=== PATIENT | male | born 1940 | race Caucasian/White ===

== ENCOUNTER 2016-06-06 08:43 | Outpatient (CLI) | payer MEDICARE | END 2016-06-06 08:44 | disposition home or self-care (01) | DX: R73.01 Impaired fasting glucose (principal); I65.21 Occlusion and stenosis of right carotid artery; E78.5 Hyperlipidemia, unspecified; E55.9 Vitamin D deficiency, unspecified ==

== ENCOUNTER 2016-07-31 07:42 | Outpatient (CLI) | payer MEDICARE ==
[2016-07-31 12:03] LABS: BASOPHILS % (AUTO) 0.6 %; EOSINOPHILS # (AUTO) 0.2 10^3/uL (0.0-0.7); EOSINOPHILS % (AUTO) 3.1 %; HCT - HEMATOCRIT 41.2 % (42.0-52.0); HGB - HEMOGLOBIN 14.5 g/dL (14.0-18.0); LYMPHOCYTES # (AUTO) 1.7 10^3/uL (1.5-3.5); LYMPHOCYTES % (AUTO) 31.4 %; MEAN CORPUSCULAR HEMOGLOBIN 32.6 pg (27.0-31.0); MEAN CORPUSCULAR HGB CONC 35.1 g/dL (32.0-36.0); MEAN CORPUSCULAR VOLUME 92.8 fL (80.0-94.0); MONOCYTES # (AUTO) 0.6 10^3/uL (0.0-1.0); MONOCYTES % (AUTO) 10.8 %; NEUTROPHILS # (AUTO) 2.9 10^3/uL (1.5-6.6); NEUTROPHILS % (AUTO) 54.1 %; RED BLOOD COUNT 4.44 10^6/uL (4.70-6.10); RED CELL DISTRIBUTION WIDTH 12.3 % (12.0-15.0); UNCORRECTED WHITE BLOOD COUNT 5.4 x10^3/uL; WHITE BLOOD COUNT 5.4 x10^3/uL (4.8-10.8)
[2016-07-31 12:49] LABS: FERRITIN 152.5 ng/mL (23.9-336.2)
[2016-07-31 13:02] LABS: IRON 100 ug/dL (45-182); THYROID STIMULATING HORMONE 1.51 uIU/mL (0.34-5.60)
[2016-07-31 13:03] LABS: TOTAL IRON BINDING CAPACITY 304 ug/dL (250-450); TRANSFERRIN 217 mg/dL (180-329)
== END 2016-07-31 07:43 | disposition home or self-care (01) ==
LOC: LAB.F 07:42
PROVIDERS: ATTEND Physician Assistant Medical
DX: E83.119 Hemochromatosis, unspecified (principal); R61 Generalized hyperhidrosis
CPT/HCPCS: 36415; 82040; 82728; 83540; 84270; 84403; 84443; 84466; 85025

== ENCOUNTER 2016-12-30 13:14 | Outpatient (CLI) | payer MEDICARE | END 2016-12-30 13:15 | disposition home or self-care (01) | LOC: LAB.F 13:14 | PROVIDERS: ATTEND Physician Assistant Medical | DX: E55.9 Vitamin D deficiency, unspecified (principal); E78.5 Hyperlipidemia, unspecified ==

== ENCOUNTER 2017-07-28 09:55 | Outpatient (CLI) | payer MEDICARE ==
[2017-07-28 18:08] LABS: CHOL/HDL RATIO 6.1 (<5.0); CHOLESTEROL 220 mg/dL; HDL CHOLESTEROL 36 mg/dL; LDL CHOLESTEROL,CALCULATED 143 mg/dL; VLDL CHOLESTEROL 41 mg/dL
== END 2017-07-28 09:56 | disposition home or self-care (01) ==
LOC: LAB.F 09:55
PROVIDERS: ATTEND Internal Medicine Cardiovascular Disease
DX: E78.4 Other hyperlipidemia (principal); Z95.5 Presence of coronary angioplasty implant and graft; I10 Essential (primary) hypertension; I21.3 ST elevation (STEMI) myocardial infarction of unspecified site
CPT/HCPCS: 36415; 80061; 81599; 82172; 83090; 83721; 85384; 86140